=== PATIENT | male | born 1975 | race Caucasian/White ===

== ENCOUNTER 2018-03-29 09:07 | Inpatient (IN) | payer OTHER ==
[~2018-03-29] VITALS: Ht 190.5 cm; Wt 132.0 kg
[~2018-03-29 09:07] MED LIST: BUPIVACAINE/PF 0.5% ONE; EPINEPHRINE 1 MG/ML, 1ML ONE; LIDOCAINE/PF 0.5% ,50ML ONE; THROMBIN 5,000 UNIT VIAL TP ONE; VANCOMYCIN 1,000 MG ONE
[2018-03-29] MEDS ORDERED: LACTATED RINGERS 1,000 ML IV SCH (09:50)
[2018-03-29] MEDS ORDERED: OXYC20TA2 PO (10:04)
[2018-03-29] MEDS ORDERED: MONT10TA9 PO (10:04)
[2018-03-29] MEDS ORDERED: HYDR12.58 PO (10:04)
[2018-03-29] MEDS ORDERED: ALBU8.5H8 INH (10:04)
[2018-03-29] MEDS ORDERED: TIZA4CAP PO (10:04)
[2018-03-29] MEDS ORDERED: OMEP-110 PO (10:04)
[2018-03-29] MEDS ORDERED: METO200T47 PO (10:04)
[2018-03-29 10:17] VITALS: BP 131/91
[2018-03-29] MEDS ORDERED: MIDAZOLAM 1 MG/ML, 2ML ONE ×2 (11:06)
[2018-03-29] MEDS ORDERED: FENTANYL PF 100 MCG/2ML ONE ×3 (11:06→12:59)
[2018-03-29] MEDS ORDERED: SUCCINYLCHOLINE 20 MG/ML, 10ML ONE (11:07)
[2018-03-29] MEDS ORDERED: CEFAZOLIN 1,000 MG ONE ×2 (11:07)
[2018-03-29] MEDS ORDERED: LIDOCAINE-MPF 2% ,5ML ONE (11:07)
[2018-03-29] MEDS ORDERED: ONDANSETRON 2MG/ML, 2ML ONE (11:07)
[2018-03-29] MEDS ORDERED: METOCLOPRAMIDE 5 MG/ML, 2ML ONE ×2 (11:07)
[2018-03-29] MEDS ORDERED: PROPOFOL 10 MG/ML, 20ML ONE (11:07)
[2018-03-29] MEDS ORDERED: DEXAMETHASONE 4 MG/ML, 1ML ONE (11:07)
[2018-03-29] MEDS ORDERED: WATER-INJECTION,STERILE 10 ML IV ONE (11:08)
[2018-03-29] MEDS ORDERED: ROCURONIUM 10 MG/ML,10ML ONE (12:28)
[2018-03-29] MEDS ORDERED: PHENYLEPHRINE 10 MG/ML ONE (12:28)
[2018-03-29] MEDS ORDERED: CEFUROXIME 1.5 GM ONE (12:56)
[2018-03-29] MEDS ORDERED: MIDAZOLAM 1 MG/ML, 2ML IV PRN (14:00)
[2018-03-29] MEDS ORDERED: PROMETHAZINE 12.5 MG SUPP PR PRN (14:00)
[2018-03-29] MEDS ORDERED: OXYcodone 5 MG/5 ML ORAL.SOL UDC PO PRN (14:00)
[2018-03-29] MEDS ORDERED: LABETALOL 5MG/ML, 20ML IV PRN (14:00)
[2018-03-29] MEDS ORDERED: MEPERIDINE/PF 25MG/0.5ML IVPush PRN (14:00)
[2018-03-29] MEDS ORDERED: ONDANSETRON ODT 8 MG PO PRN (14:00)
[2018-03-29] MEDS ORDERED: ALBUTEROL SULFATE 2.5 MG/3 ML NPPB PRN ×2 (14:00→17:30)
[2018-03-29] MEDS ORDERED: hydrALAzine 20 MG/ML, 1ML IV PRN (14:00)
[2018-03-29] MEDS ORDERED: FENTANYL PF 100 MCG/2ML IV PRN (14:00)
[2018-03-29] MEDS: MORPHINE SULFATE 4 MG/ML, 1ML IVPush PRN ×3 (15:18→16:38)
[2018-03-29] MEDS ORDERED: PROMETHAZINE 25 MG/ML, 1ML ONE (15:34)
[2018-03-29] MEDS: PROMETHAZINE 25 MG/ML, 1ML IV PRN ×2 (15:37→15:54)
[2018-03-29] MEDS ORDERED: MORPHINE SULFATE 4 MG/ML, 1ML ONE ×2 (15:42→16:08)
[2018-03-29] MEDS ORDERED: HYDROmorphone 2 MG/ML, 1ML ONE (18:34)
[2018-03-29 18:52] LABS: BASOPHILS # (AUTO) 0.01 x10^3/uL (0-0.1); BASOPHILS % (AUTO) 0 % (0-1); EOSINOPHILS % (AUTO) 0 % (1-7); LYMPHOCYTES # (AUTO) 0.64 x10^3/uL (1-3.4); LYMPHOCYTES % (AUTO) 7 % (22-44); MD NO; MEAN CORPUSCULAR HEMOGLOBIN 28.7 pg (27.5-34.5); MEAN CORPUSCULAR HGB CONC 33.7 g/dL (33.2-36.2); MEAN PLATELET VOLUME 8.7 fL (7.4-10.4); MONOCYTES % (AUTO) 1 % (2-9); NEUTROPHILS # (AUTO) 7.94 x10^3/uL (1.8-6.8); NEUTROPHILS % (AUTO) 92 % (42-75); PLATELET COUNT 264 x10^3/uL (130-400); RED BLOOD COUNT 5.23 x10^6/uL (4.38-5.82); RED CELL DISTRIBUTION WIDTH 13.4 % (9.4-14.8)
[2018-03-29] MEDS ORDERED: BISACODYL 10 MG SUPP PR PRN (19:00)
[2018-03-29] MEDS ORDERED: HYDROmorphone 2 MG/ML, 1ML IM PRN (19:00)
[2018-03-29] MEDS ORDERED: MAGNESIUM HYDROXIDE 8%, 30ML UDC PO PRN (19:00)
[2018-03-29] MEDS ORDERED: HYDROcodone/APAP 10/325 MG TABLET PO PRN (19:00)
[2018-03-29 19:03] LABS: CHLORIDE 107 mmol/L (98-107)
[2018-03-29 19:04] LABS: ALANINE AMINOTRANSFERASE 43 U/L (12-78); ALBUMIN 3.4 g/dL (3.4-5.0); ANION GAP 5 mmol/L (5-15); CALCIUM 8.6 mg/dL (8.5-10.1); CREATININE 1.17 mg/dL (0.7-1.3); HCT (SEDRATE) 44.5 % (39.2-51.8)
[2018-03-29 19:11] LABS: ALKALINE PHOSPHATASE 91 U/L (45-117); BILIRUBIN,TOTAL 0.8 mg/dL (0.2-1.0); TOTAL PROTEIN 6.8 g/dL (6.4-8.2)
[2018-03-29] MEDS: HYDROmorphone 2 MG/ML, 1ML IV PRN ×2 (19:54→22:20)
[2018-03-29] MEDS: D5%-0.9% NACL+KCL 20MEQ 1,000 ML IV SCH (19:55)
[2018-03-29] MEDS ORDERED: CEFUROXIME 1.5 GM in SODIUM CHLORIDE 0.9% 50 ML IVPB SCH (21:00)
[2018-03-29] MEDS: CEFUROXIME 1.5 GM in SODIUM CHLORIDE 0.9% 100 ML IV SCH (21:01)
[2018-03-29] MEDS: TIZANIDINE 4MG TABLET PO SCH (21:02)
[2018-03-29] MEDS: MONTELUKAST 10 MG TABLET PO SCH (21:02)
[2018-03-29] MEDS: DEXAMETHASONE 4 MG/ML, 1ML IV SCH (21:02)
[2018-03-29] MEDS: OXYcodone IR 5MG TABLET PO PRN (23:03)
[2018-03-29] MEDS ORDERED: KETOROLAC 30 MG/1 ML ONE (23:12)
[2018-03-29] MEDS ORDERED: KETOROLAC 30 MG/1 ML IVPush SCH (23:30)
[2018-03-30] MEDS: DEXAMETHASONE 4 MG/ML, 1ML IV SCH (03:45)
[2018-03-30 04:26] VITALS: BP 87/46
[2018-03-30] MEDS: OXYcodone IR 5MG TABLET PO PRN ×4 (04:53→21:47)
[2018-03-30] MEDS: CEFUROXIME 1.5 GM in SODIUM CHLORIDE 0.9% 100 ML IV SCH ×2 (05:33→12:47)
[2018-03-30] MEDS: D5%-0.9% NACL+KCL 20MEQ 1,000 ML IV SCH ×2 (05:33→16:02)
[2018-03-30] MEDS: HYDROmorphone 2 MG/ML, 1ML IV PRN ×6 (07:36→23:03)
[2018-03-30] MEDS: TIZANIDINE 4MG TABLET PO SCH ×2 (07:37→21:47)
[2018-03-30] MEDS: METOPROLOL SUCCINATE 100 MG TAB.ER.24H PO SCH (07:37)
[2018-03-30] MEDS: OMEPRAZOLE 20 MG CAPSULE.DR PO SCH ×2 (07:37→17:56)
[2018-03-30] MEDS: SENNA/DOCUSATE TABLET PO SCH (07:37)
[2018-03-30] MEDS: HYDROCHLOROTHIAZIDE 12.5 MG CAPSULE PO SCH (07:38)
[2018-03-30] MEDS: HYDROmorphone 2MG TABLET PO PRN ×4 (08:43→19:23)
[2018-03-30] MEDS: MONTELUKAST 10 MG TABLET PO SCH (21:47)
[2018-03-30] MEDS: PROMETHAZINE 25 MG/ML, 1ML IM PRN (21:56)
[2018-03-30] MEDS: CEFUROXIME 1.5 GM in SODIUM CHLORIDE 0.9% 50 ML IV SCH (22:10)
[2018-03-31] MEDS: HYDROmorphone 2MG TABLET PO PRN (00:33)
[2018-03-31] MEDS: D5%-0.9% NACL+KCL 20MEQ 1,000 ML IV SCH ×3 (00:33→21:00)
[2018-03-31] MEDS: HYDROmorphone 2 MG/ML, 1ML IV PRN ×8 (01:08→21:38)
[2018-03-31 04:00] VITALS: BP 110/60
[2018-03-31] MEDS: OXYcodone IR 5MG TABLET PO PRN ×4 (04:21→23:52)
[2018-03-31] MEDS: CEFUROXIME 1.5 GM in SODIUM CHLORIDE 0.9% 50 ML IV SCH ×3 (06:30→22:49)
[2018-03-31] MEDS: METOPROLOL SUCCINATE 100 MG TAB.ER.24H PO SCH (08:00)
[2018-03-31] MEDS: SENNA/DOCUSATE TABLET PO SCH (08:53)
[2018-03-31] MEDS: OMEPRAZOLE 20 MG CAPSULE.DR PO SCH ×2 (08:53→17:14)
[2018-03-31] MEDS: HYDROCHLOROTHIAZIDE 12.5 MG CAPSULE PO SCH (08:53)
[2018-03-31] MEDS: TIZANIDINE 4MG TABLET PO SCH ×2 (09:54→21:38)
[2018-03-31 18:16] LABS: BASOPHILS # (AUTO) 0.06 x10^3/uL (0-0.1); BASOPHILS % (AUTO) 1 % (0-1); EOSINOPHILS # (AUTO) 0.09 x10^3/uL (0-0.4); EOSINOPHILS % (AUTO) 1 % (1-7); LYMPHOCYTES # (AUTO) 1.73 x10^3/uL (1-3.4); LYMPHOCYTES % (AUTO) 19 % (22-44); MD NO; MEAN CORPUSCULAR HEMOGLOBIN 28.7 pg (27.5-34.5); MEAN CORPUSCULAR HGB CONC 33.4 g/dL (33.2-36.2); MEAN PLATELET VOLUME 8.6 fL (7.4-10.4); MONOCYTES # (AUTO) 0.96 x10^3/uL (0.2-0.8); MONOCYTES % (AUTO) 10 % (2-9); NEUTROPHILS # (AUTO) 6.42 x10^3/uL (1.8-6.8); NEUTROPHILS % (AUTO) 69 % (42-75); PLATELET COUNT 239 x10^3/uL (130-400); RED BLOOD COUNT 4.76 x10^6/uL (4.38-5.82); RED CELL DISTRIBUTION WIDTH 13.8 % (9.4-14.8)
[2018-03-31 18:21] LABS: ANION GAP 5 mmol/L (5-15); CALCIUM 8.3 mg/dL (8.5-10.1); CHLORIDE 106 mmol/L (98-107); CREATININE 0.86 mg/dL (0.7-1.3)
[2018-03-31] MEDS: MONTELUKAST 10 MG TABLET PO SCH (21:38)
[2018-04-01 04:00] VITALS: BP 125/52
[2018-04-01] MEDS: HYDROmorphone 2 MG/ML, 1ML IV PRN ×3 (04:06→20:20)
[2018-04-01 04:17] LABS: BASOPHILS # (AUTO) 0.03 x10^3/uL (0-0.1); BASOPHILS % (AUTO) 0 % (0-1); EOSINOPHILS # (AUTO) 0.15 x10^3/uL (0-0.4); EOSINOPHILS % (AUTO) 2 % (1-7); LYMPHOCYTES # (AUTO) 1.74 x10^3/uL (1-3.4); LYMPHOCYTES % (AUTO) 18 % (22-44); MD NO; MEAN CORPUSCULAR HEMOGLOBIN 28.9 pg (27.5-34.5); MEAN CORPUSCULAR HGB CONC 33.2 g/dL (33.2-36.2); MEAN CORPUSCULAR VOLUME 86.9 fL (81-97); MEAN PLATELET VOLUME 8.6 fL (7.4-10.4); MONOCYTES # (AUTO) 0.91 x10^3/uL (0.2-0.8); MONOCYTES % (AUTO) 10 % (2-9); NEUTROPHILS # (AUTO) 6.64 x10^3/uL (1.8-6.8); NEUTROPHILS % (AUTO) 70 % (42-75); PLATELET COUNT 220 x10^3/uL (130-400); RED BLOOD COUNT 4.73 x10^6/uL (4.38-5.82); RED CELL DISTRIBUTION WIDTH 13.5 % (9.4-14.8)
[2018-04-01 04:27] LABS: ALANINE AMINOTRANSFERASE 32 U/L (12-78); ALBUMIN 2.8 g/dL (3.4-5.0); ANION GAP 2 mmol/L (5-15); CALCIUM 8.3 mg/dL (8.5-10.1); CHLORIDE 105 mmol/L (98-107); CREATININE 0.83 mg/dL (0.7-1.3)
[2018-04-01 04:30] LABS: ALKALINE PHOSPHATASE 71 U/L (45-117); BILIRUBIN,TOTAL 0.3 mg/dL (0.2-1.0)
[2018-04-01] MEDS: METOPROLOL SUCCINATE 100 MG TAB.ER.24H PO SCH (06:00)
[2018-04-01] MEDS: CEFUROXIME 1.5 GM in SODIUM CHLORIDE 0.9% 50 ML IV SCH ×3 (06:08→23:23)
[2018-04-01] MEDS: D5%-0.9% NACL+KCL 20MEQ 1,000 ML IV SCH ×2 (07:00→17:00)
[2018-04-01] MEDS: OMEPRAZOLE 20 MG CAPSULE.DR PO SCH ×2 (08:21→17:32)
[2018-04-01] MEDS: TIZANIDINE 4MG TABLET PO SCH ×2 (08:21→20:36)
[2018-04-01] MEDS: SENNA/DOCUSATE TABLET PO SCH (08:22)
[2018-04-01] MEDS: OXYcodone IR 5MG TABLET PO PRN (09:31)
[2018-04-01] MEDS: HYDROmorphone 2MG TABLET PO PRN ×3 (12:09→22:54)
[2018-04-01 20:11] VITALS: BP 146/86
[2018-04-01] MEDS: MONTELUKAST 10 MG TABLET PO SCH (20:36)
[2018-04-02 01:08] VITALS: BP 131/78
[2018-04-02] MEDS: D5%-0.9% NACL+KCL 20MEQ 1,000 ML IV SCH ×3 (01:59→22:29)
[2018-04-02] MEDS: HYDROmorphone 2MG TABLET PO PRN ×5 (01:59→20:16)
[2018-04-02 04:57] LABS: ANION GAP 6 mmol/L (5-15); CALCIUM 9.4 mg/dL (8.5-10.1); CHLORIDE 103 mmol/L (98-107); CREATININE 1.18 mg/dL (0.7-1.3)
[2018-04-02 04:58] LABS: BASOPHILS # (AUTO) 0.03 x10^3/uL (0-0.1); BASOPHILS % (AUTO) 0 % (0-1); EOSINOPHILS # (AUTO) 0.17 x10^3/uL (0-0.4); EOSINOPHILS % (AUTO) 1 % (1-7); LYMPHOCYTES # (AUTO) 1.52 x10^3/uL (1-3.4); LYMPHOCYTES % (AUTO) 11 % (22-44); MD NO; MEAN CORPUSCULAR HEMOGLOBIN 28.7 pg (27.5-34.5); MEAN CORPUSCULAR HGB CONC 33.9 g/dL (33.2-36.2); MEAN CORPUSCULAR VOLUME 84.7 fL (81-97); MEAN PLATELET VOLUME 8.6 fL (7.4-10.4); MONOCYTES # (AUTO) 1.26 x10^3/uL (0.2-0.8); MONOCYTES % (AUTO) 9 % (2-9); NEUTROPHILS # (AUTO) 10.76 x10^3/uL (1.8-6.8); NEUTROPHILS % (AUTO) 78 % (42-75); PLATELET COUNT 281 x10^3/uL (130-400); RED BLOOD COUNT 5.66 x10^6/uL (4.38-5.82); RED CELL DISTRIBUTION WIDTH 13.1 % (9.4-14.8)
[2018-04-02] MEDS: ONDANSETRON 2MG/ML, 2ML IV PRN ×2 (05:35→18:35)
[2018-04-02] MEDS: HYDROcodone/APAP 5/325 TABLET PO PRN ×2 (05:39→06:15)
[2018-04-02 06:05] VITALS: BP 143/91
[2018-04-02] MEDS: METOPROLOL SUCCINATE 100 MG TAB.ER.24H PO SCH (06:09)
[2018-04-02] MEDS: CEFUROXIME 1.5 GM in SODIUM CHLORIDE 0.9% 50 ML IV SCH (06:09)
[2018-04-02 06:58] VITALS: BP 117/82
[2018-04-02] MEDS: PROMETHAZINE 25 MG/ML, 1ML IM PRN (07:32)
[2018-04-02] MEDS: OMEPRAZOLE 20 MG CAPSULE.DR PO SCH ×2 (09:06→18:35)
[2018-04-02] MEDS: SENNA/DOCUSATE TABLET PO SCH (09:07)
[2018-04-02] MEDS: TIZANIDINE 4MG TABLET PO SCH ×2 (09:07→20:17)
[2018-04-02] MEDS ORDERED: KETOROLAC 30 MG/1 ML ONE (12:12)
[2018-04-02] MEDS ORDERED: KETOROLAC 30 MG/1 ML IVPush ONE (13:00)
[2018-04-02] MEDS: LIDODERM 5% PATCH TD SCH (13:00)
[2018-04-02 14:03] VITALS: BP 102/70
[2018-04-02 14:59] VITALS: BP 109/76
[2018-04-02] MEDS: KETOROLAC 30 MG/1 ML IVPush PRN (20:16)
[2018-04-02] MEDS: MONTELUKAST 10 MG TABLET PO SCH (20:17)
[2018-04-02 20:26] VITALS: BP 116/76
[2018-04-03 04:51] LABS: BASOPHILS # (AUTO) 0.05 x10^3/uL (0-0.1); BASOPHILS % (AUTO) 0 % (0-1); EOSINOPHILS # (AUTO) 0.19 x10^3/uL (0-0.4); EOSINOPHILS % (AUTO) 1 % (1-7); LYMPHOCYTES # (AUTO) 1.74 x10^3/uL (1-3.4); LYMPHOCYTES % (AUTO) 12 % (22-44); MD NO; MEAN CORPUSCULAR HEMOGLOBIN 28.4 pg (27.5-34.5); MEAN CORPUSCULAR HGB CONC 33.4 g/dL (33.2-36.2); MEAN PLATELET VOLUME 8.6 fL (7.4-10.4); MONOCYTES # (AUTO) 1.05 x10^3/uL (0.2-0.8); MONOCYTES % (AUTO) 7 % (2-9); NEUTROPHILS # (AUTO) 11.76 x10^3/uL (1.8-6.8); NEUTROPHILS % (AUTO) 80 % (42-75); PLATELET COUNT 294 x10^3/uL (130-400); RED BLOOD COUNT 5.65 x10^6/uL (4.38-5.82); RED CELL DISTRIBUTION WIDTH 13.1 % (9.4-14.8)
[2018-04-03 04:55] VITALS: BP 107/73
[2018-04-03] MEDS: HYDROmorphone 2MG TABLET PO PRN (04:58)
[2018-04-03] MEDS: KETOROLAC 30 MG/1 ML IVPush PRN (04:58)
[2018-04-03 05:02] LABS: ALBUMIN 3.1 g/dL (3.4-5.0); ANION GAP 5 mmol/L (5-15); CALCIUM 9.1 mg/dL (8.5-10.1); CHLORIDE 103 mmol/L (98-107)
[2018-04-03 05:07] LABS: ALANINE AMINOTRANSFERASE 42 U/L (12-78); ALKALINE PHOSPHATASE 94 U/L (45-117); CREATININE 1.38 mg/dL (0.7-1.3); TOTAL PROTEIN 7.2 g/dL (6.4-8.2)
[2018-04-03] MEDS ORDERED: METOPROLOL SUCCINATE 100 MG TAB.ER.24H PO SCH (06:00)
[2018-04-03 07:10] VITALS: BP 119/78
[2018-04-03] MEDS ORDERED: SODIUM CHLORIDE 0.9% 1,000 ML IV SCH (07:30)
[2018-04-03] MEDS: TIZANIDINE 4MG TABLET PO SCH (08:31)
[2018-04-03] MEDS: OMEPRAZOLE 20 MG CAPSULE.DR PO SCH (08:31)
[2018-04-03] MEDS: SENNA/DOCUSATE TABLET PO SCH (08:31)
[2018-04-03] MEDS: LIDODERM 5% PATCH TD SCH (10:23)
[2018-04-03] MEDS ORDERED: LINEZOLID 600 MG TABLET PO SCH (12:30)
[2018-04-03] MEDS ORDERED: DAPTOMYCIN 750 MG in SODIUM CHLORIDE 0.9% 100 ML IV ONE (14:00)
[2018-04-03 15:05] VITALS: BP 138/88
[2018-04-04] MEDS ORDERED: SODIUM CHLORIDE 0.9% 1,000 ML IV SCH (07:30)
== END 2018-04-03 17:10 | disposition home or self-care (01) | DRG 29 ==
LOC: ORIP 09:07 → CCU 16:24 → 4NOR 04-01 19:30
PROVIDERS: ADMIT Orthopaedic Surgery Orthopaedic Surgery of the Spine; ATTEND Orthopaedic Surgery Orthopaedic Surgery of the Spine
PROC: 00QT0ZZ Repair Spinal Meninges, Open Approach (ICD-10-PCS; principal; 2018-03-29 11:00)
DX: G97.82 Other postprocedural complications and disorders of nervous system (principal); G96.0 Cerebrospinal fluid leak; Y83.8 Other surgical procedures as the cause of abnormal reaction of the patient, or of later complication, without mention of misadventure at the time of the procedure; J45.909 Unspecified asthma, uncomplicated; I10 Essential (primary) hypertension; I95.9 Hypotension, unspecified; M54.5 Low back pain; G89.29 Other chronic pain; B95.7 Other staphylococcus as the cause of diseases classified elsewhere; Y92.89 Other specified places as the place of occurrence of the external cause; Z87.442 Personal history of urinary calculi; Z88.6 Allergy status to analgesic agent; Z88.8 Allergy status to other drugs, medicaments and biological substances
CPT/HCPCS: 36415; 72100; 80048; 80053; 83735; 84100; 85025; 85651; 86140; 87015; 87040; 87070; 87075; 87077; 87081; 87102; 87116; 87186; 87205; 87206; J0171; J0690; J0697; J0878; J1100; J1170; J1885; J2001; J2250; J2405; J2550; J2704; J3010; J3370; J3490; C1781; J0330; J2370; J2765; J3480; J7030; J7120